=== PATIENT | male | born 1930 | race Caucasian/White ===

== ENCOUNTER 2017-01-19 07:45 | Inpatient (IN) | payer MEDICARE, BC ==
[2017-01-19] MEDS ORDERED: Sodium Chloride 0.9% 1,000 ML IV SCH ×2 (08:30→11:30)
--- NOTE | 2017-01-19 10:49 | EDM.PDOC ---
[id number] 4d CONFUSSED Time Seen by Provider: 01/19/17 07:55 Source of Information: Reports: Patient, EMS notes reviewed, Family History Limitations: Reports: No limitations - History of Present Illness INITIAL COMMENTS - FREE TEXT/NARRATIVE: Pt became much more confused during the nite. He got on the toilet and was not able to sit up. He gently slide off the toilet. Onset: today Duration: Hour(s): Associated Symptoms: Reports: confusion, cough, weakness - Related Data Allergies Allergy/AdvReac Type Severity Reaction Status Date / Time venom-honey bee Allergy Severe Airway Verified 01/19/17 08:05 [bee venom (honey bee)] Tightness Home Meds: Home Meds Alfuzosin HCl [Alfuzosin] 10 mg PO DAILY 10/22/14 [History] Aspirin [Adult Low Dose Aspirin EC] 81 mg PO DAILY 10/22/14 [History] Lisinopril 40 mg PO DAILY 10/22/14 [History] Omeprazole [priLOSEC OTC] 20 mg PO DAILY 10/22/14 [History] Simvastatin 20 mg PO DAILY 10/22/14 [History] Warfarin Sodium 2.5 mg PO ASDIRECTED 10/22/14 [History] metFORMIN [Glucophage] 1,000 mg PO BIDM 10/22/14 [History] Carvedilol [Coreg] 12.5 mg PO BIDM #60 tablet 10/25/14 [Rx] Furosemide 40 mg PO DAILY #30 tablet 04/15/16 [Rx] Past Medical History HEENT History: Reports: Cataract, Impaired vision Cardiovascular History: Reports: Afib, Bypass, CAD, High cholesterol, Hypertension, Pacemaker, Stents Respiratory History: Reports: Other (see below) Other Respiratory History: pneumonia Neurological History: Reports: CVA Endocrine/Metabolic History: Reports: Diabetes, type II Hematologic History: Reports: Anticoagulation therapy Oncologic (Cancer) History: Reports: Other (see below) Other Oncologic History: recent ear biopsy for possible skin cancer. Dermatologic History: Reports: Other (see below) Other Dermatologic History: biopsy on ear - Infectious Disease History Infectious Disease History: Reports: Chicken pox - Past Surgical History HEENT Surgical History: Reports: Cataract surgery Cardiovascular Surgical History: Reports: Coronary artery bypass, Coronary artery stent GI Surgical History: Reports: Hernia repair/other Musculoskeletal Surgical History: Reports: Knee replacement Social & Family History - Family History Cardiac: Reports: SD Endocrine/Metabolic: Reports: Diabetes, type II - Tobacco Use Smoking Status *Q: Former Smoker Years of Tobacco use: 30 Used Tobacco, but Quit: Yes Month Tobacco Last Used: 30 yrs Second Hand Smoke Exposure: No - Alcohol Use Days Per Week of Alcohol Use: 7 Number of Drinks Per Day: 1 Total Drinks Per Week: 7 - Recreational Drug Use Recreational Drug Use: No Drug Use in Last 12 Months: No ED ROS GENERAL - Review of Systems Review Of Systems: See Below Constitutional: Reports: fever, other (pt is running a low grade temp) HEENT: Reports: No symptoms Respiratory: Reports: Cough, Sputum, Other ( raising yellow sputum. ) Cardiovascular: Reports: No symptoms Endocrine: Reports: no symptoms GI/Abdominal: Reports: No symptoms : Reports: no symptoms Musculoskeletal: Reports: no symptoms Skin: Reports: no symptoms ED EXAM, GENERAL - Physical Exam Exam: See Below Free Text/Narrative:: pt does have a expressive problem from a stroke from 1 year ago. He was not able to tell us his date or where he was. Exam Limited By: Altered mental status General Appearance: alert, other (confusipon increase. pupils equal and reactive ) Ears: normal TMs Ear Exam: bilateral ear: auricle normal, canal normal, TM normal Nose: normal inspection Throat/Mouth: Normal inspection Head: atraumatic Neck: normal inspection, other Respiratory/Chest: no respiratory distress Cardiovascular: regular rate, rhythm, tachycardia GI/Abdominal: soft, non tender (Male) Exam: Deferred Rectal (Males) Exam: Deferred Back Exam: normal inspection Extremities: other ( Pt was not noted to have weakness on one side or the other. ) Neurological: alert, disoriented Course - Vital Signs Last Recorded V/S: Last Vital Signs Temp 37.6 C 01/20/17 07:23 Pulse 84 01/20/17 07:33 Resp 18 01/20/17 07:23 BP 147/103 H 01/20/17 07:24 Pulse Ox 95 01/20/17 07:23 - Orders/Labs/Meds Orders: Active Orders 24 hr Category Date Time Status Chest 1V Frontal [CR] Stat Exams 01/19/17 07:59 Taken Head wo Cont [CT] Stat Exams 01/19/17 07:59 Taken CULTURE BLOOD [BC] Urgent Lab 01/19/17 08:00 Received CULTURE BLOOD [BC] Urgent Lab 01/19/17 08:20 Received CULTURE RESPIRATORY + SMEAR [RM] Stat Lab 01/19/17 11:20 Uncollected Blood Culture x2 Reflex Set [OM.PC] Urgent Oth 01/19/17 09:02 Ordered Medication Orders Acetaminophen (Tylenol) 650 mg PO Q4H PRN PRN Reason: Pain (Mild 1-3)/fever Albuterol (Proventil Neb Soln) 2.5 mg NEB Q4H PRN PRN Reason: Shortness Of Breath/wheezing Albuterol/Ipratropium (Duoneb 3.0-0.5 Mg/3 Ml) 3 ml NEB QIDRT [facility] Last Admin: 01/20/17 07:33 Dose: 3 ml Admin: 01/19/17 20:45 Dose: 3 ml Admin: 01/19/17 14:49 Dose: 3 ml Aspirin (Halfprin) 81 mg PO DAILY [facility] Last Admin: 01/19/17 17:59 Dose: 81 mg Carvedilol (Coreg) 12.5 mg PO BIDM [facility] Last Admin: 01/20/17 07:24 Dose: 12.5 mg Admin: 01/19/17 18:00 Dose: 12.5 mg Dextrose (Glutose 15) 15 gm PO ONETIME PRN PRN Reason: Hypoglycemia Dextrose/Water (Dextrose 50% In Water) 50 ml IV ONETIME PRN PRN Reason: Hypoglycemia Docusate Sodium (Colace) 100 mg PO BID PRN PRN Reason: Constipation Furosemide (Lasix) 40 mg PO DAILY [facility] Azithromycin 500 mg/ Sodium (Chloride) 250 mls @ 250 mls/hr IV Q24H [facility] Last Admin: 01/19/17 15:12 Dose: 250 mls/hr Sodium Chloride (Normal Saline) 1,000 mls @ 75 mls/hr IV ASDIRECTED [facility] Last Admin: 01/20/17 05:56 Dose: 75 mls/hr Infusion: 01/20/17 05:11 Dose: 75 mls/hr Admin: 01/19/17 15:51 Dose: 75 mls/hr Ceftriaxone Sodium 1 gm/ (Sodium Chloride) 50 mls @ 100 mls/hr IV Q24H [facility] Last Admin: 01/19/17 16:58 Dose: 100 mls/hr Insulin Aspart (Novolog) 0 unit SUBCUT ASDIRECTED [facility] PRN Reason: Protocol Last Admin: 01/19/17 17:57 Dose: 4 units Lisinopril (Prinivil) 40 mg PO DAILY [facility] Last Admin: 01/19/17 18:01 Dose: 40 mg Magnesium Hydroxide (Milk Of Magnesia) 30 ml PO Q12H PRN PRN Reason: Constipation Alfuzosin 10 Mg ( (Ptom)) 0 mg PO DAILY [facility] Last Admin: 01/19/17 18:00 Dose: 10 mg Omeprazole 20 Mg ( (Ptom)) 0 mg PO DAILY@0730 [facility] Last Admin: 01/20/17 07:22 Dose: 20 mg Admin: 01/19/17 18:00 Dose: 20 mg Ondansetron HCl (Zofran) 4 mg IV Q4H PRN PRN Reason: Nausea/Vomiting Oxycodone HCl (Oxycodone) 5 mg PO Q4H PRN PRN Reason: Pain (moderate 4-6) Polyethylene Glycol (Miralax) 17 gm PO DAILY PRN PRN Reason: Constipation Sodium Chloride (Saline Flush) 10 ml FLUSH ASDIRECTED PRN PRN Reason: Keep Vein Open Labs: Laboratory Tests 01/19/17 01/19/17 01/19/17 Range/Units 07:58 08:00 08:00 WBC 11.6 H (4.5-11.0) K/uL RBC 3.56 L (4.30-5.90) M/uL Hgb 11.0 L D (12.0-15.0) g/dL Hct 33.5 L (40.0-54.0) % MCV 94 (80-98) fL MCH 31 (27-31) pg MCHC 33 (32-36) % Plt Count 172 (150-400) K/uL Neut % (Auto) 86 H (36-66) % Lymph % (Auto) 5 L (24-44) % [place] % (Auto) 8 H (2-6) % Eos % (Auto) 1 L (2-4) % Baso % (Auto) 0 (0-1) % PT 31.9 H (9.5-12.0) sec INR 2.91 H D (0.80-1.20) Sodium 138 L (140-148) mmol/L Potassium 4.3 (3.6-5.2) mmol/L Chloride 102 (100-108) mmol/L Carbon Dioxide 26 (21-32) mmol/L Anion Gap 14.3 H (5.0-14.0) mmol/L BUN 25 H (7-18) mg/dL Creatinine 1.3 (0.8-1.3) mg/dL Est Cr Clr Drug Dosing TNP Estimated GFR (MDRD) 52 L (>60) Glucose 139 H (74-106) mg/dL Lactic Acid (0.4-2.0) mmol/L Calcium 8.4 L (8.5-10.1) mg/dL Total Bilirubin 0.9 (0.2-1.0) mg/dL AST 15 (15-37) U/L ALT 15 (12-78) U/L Alkaline Phosphatase 93 (46-116) U/L Total Protein 7.5 (6.4-8.2) g/dL Albumin 3.5 (3.4-5.0) g/dL Globulin 4.0 H (2.3-3.5) g/dL Albumin/Globulin Ratio 0.9 L (1.2-2.2) Urine Color Urine Appearance Urine pH (4.5-8.0) Ur Specific [place] (1.008-1.030) Urine Protein (NEGATIVE) mg/dL Urine Glucose (UA) (NEGATIVE) mg/dL Urine Ketones (NEGATIVE) mg/dL Urine Occult Blood (NEGATIVE) Urine Nitrite (NEGAITVE) Urine Bilirubin (NEGATIVE) Urine Urobilinogen (NORMAL) mg/dL Ur Leukocyte Esterase (NEGATIVE) Urine RBC (0-5) Urine WBC (0-5) Ur Epithelial Cells Amorphous Sediment Urine Bacteria Urine Mucus 01/19/17 01/19/17 Range/Units 09:03 10:23 WBC (4.5-11.0) K/uL RBC (4.30-5.90) M/uL Hgb (12.0-15.0) g/dL Hct (40.0-54.0) % MCV (80-98) fL MCH (27-31) pg MCHC (32-36) % Plt Count (150-400) K/uL Neut % (Auto) (36-66) % Lymph % (Auto) (24-44) % [place] % (Auto) (2-6) % Eos % (Auto) (2-4) % Baso % (Auto) (0-1) % PT (9.5-12.0) sec INR (0.80-1.20) Sodium (140-148) mmol/L Potassium (3.6-5.2) mmol/L Chloride (100-108) mmol/L Carbon Dioxide (21-32) mmol/L Anion Gap (5.0-14.0) mmol/L BUN (7-18) mg/dL Creatinine (0.8-1.3) mg/dL Est Cr Clr Drug Dosing Estimated GFR (MDRD) (>60) Glucose (74-106) mg/dL Lactic Acid 1.7 (0.4-2.0) mmol/L Calcium (8.5-10.1) mg/dL Total Bilirubin (0.2-1.0) mg/dL AST (15-37) U/L ALT (12-78) U/L Alkaline Phosphatase (46-116) U/L Total Protein (6.4-8.2) g/dL Albumin (3.4-5.0) g/dL Globulin (2.3-3.5) g/dL Albumin/Globulin Ratio (1.2-2.2) Urine Color Yellow Urine Appearance Clear Urine pH 7.0 (4.5-8.0) Ur Specific [place] 1.010 (1.008-1.030) Urine Protein Negative (NEGATIVE) mg/dL Urine Glucose (UA) Normal (NEGATIVE) mg/dL Urine Ketones Negative (NEGATIVE) mg/dL Urine Occult Blood Negative (NEGATIVE) Urine Nitrite Negative (NEGAITVE) Urine Bilirubin Negative (NEGATIVE) Urine Urobilinogen 1 (NORMAL) mg/dL Ur Leukocyte Esterase Negative (NEGATIVE) Urine RBC 0-5 (0-5) Urine WBC 0-5 (0-5) Ur Epithelial Cells Not seen Amorphous Sediment Not seen Urine Bacteria Not seen Urine Mucus Not seen Meds: Medications Generic Name Dose Route Start Last Admin Trade Name Freq PRN Reason Stop Dose Admin Acetaminophen 650 mg 01/19/17 14:08 Tylenol PO Q4H PRN Pain (Mild 1-3)/fever Albuterol 2.5 mg 01/19/17 14:08 Proventil Neb Soln NEB Q4H PRN Shortness Of Breath/wheezing Albuterol/Ipratropium 3 ml 01/19/17 15:00 01/20/17 07:33 Duoneb 3.0-0.5 Mg/3 Ml NEB 3 ml QIDRT [facility] Administration Aspirin 81 mg 01/19/17 14:08 01/19/17 17:59 Halfprin PO 81 mg DAILY [facility] Administration Carvedilol 12.5 mg 01/19/17 17:00 01/20/17 07:24 Coreg PO 12.5 mg BIDM [facility] Administration Dextrose 15 gm 01/19/17 14:08 Glutose 15 PO ONETIME PRN Hypoglycemia Dextrose/Water 50 ml 01/19/17 14:08 Dextrose 50% In Water IV ONETIME PRN Hypoglycemia Docusate Sodium 100 mg 01/19/17 14:08 Colace PO BID PRN Constipation Furosemide 40 mg 01/20/17 09:00 Lasix PO DAILY [facility] Azithromycin 500 mg/ Sodium 250 mls @ 250 mls/hr 01/19/17 15:00 01/19/17 15: 12 Chloride IV 250 mls/hr Q24H [facility] Administration Sodium Chloride 1,000 mls @ 75 mls/hr 01/19/17 14:08 01/20/17 05:56 Normal Saline IV 75 mls/hr ASDIRECTED [facility] Administration Ceftriaxone Sodium 1 gm/ 50 mls @ 100 mls/hr 01/19/17 16:00 01/19/17 16:58 Sodium Chloride IV 100 mls/hr Q24H [facility] Administration Insulin Aspart 0 unit 01/19/17 14:08 01/19/17 17:57 Novolog SUBCUT 4 units ASDIRECTED [facility] Administration Protocol Lisinopril 40 mg 01/19/17 16:00 01/19/17 18:01 Prinivil PO 40 mg DAILY [facility] Administration Magnesium Hydroxide 30 ml 01/19/17 14:08 Milk Of Magnesia PO Q12H PRN Constipation Alfuzosin 10 Mg ( 0 mg 01/19/17 14:08 01/19/17 18:00 Ptom) PO 10 mg DAILY [facility] Administration Omeprazole 20 Mg ( 0 mg 01/19/17 16:00 01/20/17 07:22 Ptom) PO 20 mg DAILY@0730 [facility] Administration Ondansetron HCl 4 mg 01/19/17 14:08 Zofran IV Q4H PRN Nausea/Vomiting Oxycodone HCl 5 mg 01/19/17 14:08 Oxycodone PO Q4H PRN Pain (moderate 4-6) Polyethylene Glycol 17 gm 01/19/17 14:08 Miralax PO DAILY PRN Constipation Sodium Chloride 10 ml 01/19/17 14:08 Saline Flush FLUSH ASDIRECTED PRN Keep Vein Open Discontinued Medications Generic Name Dose Route Start Last Admin Trade Name Freq PRN Reason Stop Dose Admin Sodium Chloride 1,000 mls @ 999 mls/hr 01/19/17 08:30 01/19/17 09:25 Normal Saline IV 999 mls/hr ASDIRECTED [facility] Administration Sodium Chloride 1,000 mls @ 250 mls/hr 01/19/17 11:30 01/19/17 11:28 Normal Saline IV 250 mls/hr ASDIRECTED [facility] Administration Lidocaine HCl 10 ml 01/19/17 18:04 01/19/17 18:23 Xylocaine 2% Jelly MUCMEM 01/19/17 18:05 10 ml ONETIME ONE Administration Lidocaine HCl Confirm 01/19/17 18:10 01/19/17 18:22 Xylocaine 2% Jelly Administered 01/19/17 18:11 Not Given Dose 10 ml .ROUTE .STK-MED ONE Warfarin Sodium 2.5 mg 01/19/17 16:00 01/19/17 17:59 Coumadin PO 01/19/17 16:01 2.5 mg ONETIME ONE Administration - Re-Assessments/Exams Free Text/Narrative Re-Assessment/Exam: 01/20/17 08:03 Pt had a cat scan of the head which did not show acute changes. He was found to have a fairly clear urine. His temp was low grade. His chest xray on th rt side possibly could have a slight infiltrate. He has been coughing up yellow sputum. Departure - Departure Time of Disposition: 11:18 Disposition: Admitted As Inpatient 65 Condition: fair Clinical Impression: Confusion, Temperature elevated - My Orders Last 24 Hours: My Active Orders 01/19/17 07:59 Chest 1V Frontal [CR] Stat Head wo Cont [CT] Stat 01/19/17 08:00 CULTURE BLOOD [BC] Urgent 01/19/17 08:20 CULTURE BLOOD [BC] Urgent 01/19/17 09:02 Blood Culture x2 Reflex Set [OM.PC] Urgent 01/19/17 11:20 CULTURE RESPIRATORY + SMEAR [RM] Stat - Assessment/Plan Last 24 Hours: My Active Orders 01/19/17 07:59 Chest 1V Frontal [CR] Stat Head wo Cont [CT] Stat 01/19/17 08:00 CULTURE BLOOD [BC] Urgent 01/19/17 08:20 CULTURE BLOOD [BC] Urgent 01/19/17 09:02 Blood Culture x2 Reflex Set [OM.PC] Urgent 01/19/17 11:20 CULTURE RESPIRATORY + SMEAR [RM] Stat
--- NOTE | 2017-01-19 13:10 | PCM.HP ---
H&P History of Present Illness - General Date of Service: 01/19/17 Admit Problem/Dx: Admission Diagnosis/Problem Admission Diagnosis/Problem Bronchitis Source of Information: Patient, Family, Provider History Limitations: Reports: Other (Expressive aphasia) - History of Present Illness Initial Comments - Free Text/Narative: This patient is an 86-year-old gentleman who is admitted to observation status through the emergency department current episode of confusion and underlying respiratory tract infection. He's had difficulty with an intermittent cough over the past few months, cough has been worse over the past week and he is begun to cough up some sputum with yellow coloration. This morning was noted to be very confused by his and brought in for further evaluation. Chest x- ray shows no obvious infiltrates and he was felt to be mildly dehydrated. White blood cell count is modestly elevated and he has had some mild temperature elevation while in the emergency department. Infusion seems to be improved and his oxygen saturations and vital signs have been stable. - Related Data Allergies/Adverse Reactions: Allergies Allergy/AdvReac Type Severity Reaction Status Date / Time venom-honey bee Allergy Severe Airway Verified 01/19/17 08:05 [bee venom (honey bee)] Tightness Home Medications: Home Meds Alfuzosin HCl [Alfuzosin] 10 mg PO DAILY 10/22/14 [History] Aspirin [Adult Low Dose Aspirin EC] 81 mg PO DAILY 10/22/14 [History] Lisinopril 40 mg PO DAILY 10/22/14 [History] Omeprazole [priLOSEC OTC] 20 mg PO DAILY 10/22/14 [History] Simvastatin 20 mg PO DAILY 10/22/14 [History] Warfarin Sodium 2.5 mg PO ASDIRECTED 10/22/14 [History] metFORMIN [Glucophage] 1,000 mg PO BIDM 10/22/14 [History] Carvedilol [Coreg] 12.5 mg PO BIDM #60 tablet 10/25/14 [Rx] Furosemide 40 mg PO DAILY #30 tablet 04/15/16 [Rx] Past Medical History HEENT History: Reports: Cataract, Impaired vision Cardiovascular History: Reports: Afib, Bypass, CAD, High cholesterol, Hypertension, Pacemaker, Stents Respiratory History: Reports: Other (see below) Other Respiratory History: pneumonia Neurological History: Reports: CVA Endocrine/Metabolic History: Reports: Diabetes, type II Hematologic History: Reports: Anticoagulation therapy Oncologic (Cancer) History: Reports: Other (see below) Other Oncologic History: recent ear biopsy for possible skin cancer. Dermatologic History: Reports: Other (see below) Other Dermatologic History: biopsy on ear - Infectious Disease History Infectious Disease History: Reports: Chicken pox - Past Surgical History HEENT Surgical History: Reports: Cataract surgery Cardiovascular Surgical History: Reports: Coronary artery bypass, Coronary artery stent GI Surgical History: Reports: Hernia repair/other Musculoskeletal Surgical History: Reports: Knee replacement Social & Family History - Family History Cardiac: Reports: CA Endocrine/Metabolic: Reports: Diabetes, type II - Tobacco Use Smoking Status *Q: Former Smoker Years of Tobacco use: 30 Used Tobacco, but Quit: Yes Month Tobacco Last Used: 30 yrs Second Hand Smoke Exposure: No - Alcohol Use Days Per Week of Alcohol Use: 7 Number of Drinks Per Day: 1 Total Drinks Per Week: 7 - Recreational Drug Use Recreational Drug Use: No Drug Use in Last 12 Months: No H&P Review of Systems - Review of Systems: Review Of Systems: Unable To Obtain General: Reports: ROS unobtainable (Secondary to confusion and expressive aphasia) Exam - Exam Exam: See Below - Vital Signs Vital Signs: Last Vital Signs Temp 99.7 F 01/19/17 10:48 Pulse 81 01/19/17 11:55 Resp 14 01/19/17 11:55 BP 129/67 01/19/17 11:55 Pulse Ox 97 01/19/17 11:55 Weight: 170 lb - Exam Quality Assessment: supplemental oxygen, DVT prophylaxis General: alert, cooperative, mild distress HEENT: Conjunctiva clear, Hearing intact, Mucosa moist & pink, Nares patent, Normal nasal septum, Posterior pharynx clear, Pupils equal, Pupils reactive Neck: supple, trachea midline, +2 carotid pulse wo bruit Lungs: Normal respiratory effort, Decreased breath sounds, Rhonchi, Wheezing. No: Crackles, Rales, Rub, Stridor Cardiovascular: regular rate, regular rhythm, normal S1, normal S2. No: irregular rhythm, bradycardia, tachycardia, systolic murmur, diastolic murmur Abdomen: normal bowel sounds, soft Back Exam: normal inspection, full range of motion, NT Extremities: 3, normal inspection, 10 Skin: warm, dry, intact Neurological: cranial nerves intact, strength equal bilateral, normal tone, sensation intact, focal deficit. No: normal speech Neuro Extensive - Mental Status: alert, normal mood/affect, memory loss-remote events, memory loss-recent events - Patient Data Lab Results last 24 hrs: Laboratory Results - last 24 hr 01/19/17 01/19/17 01/19/17 Range/Units 07:58 08:00 08:00 WBC 11.6 H (4.5-11.0) K/uL RBC 3.56 L (4.30-5.90) M/uL Hgb 11.0 L D (12.0-15.0) g/dL Hct 33.5 L (40.0-54.0) % MCV 94 (80-98) fL MCH 31 (27-31) pg MCHC 33 (32-36) % Plt Count 172 (150-400) K/uL Neut % (Auto) 86 H (36-66) % Lymph % (Auto) 5 L (24-44) % [place] % (Auto) 8 H (2-6) % Eos % (Auto) 1 L (2-4) % Baso % (Auto) 0 (0-1) % PT 31.9 H (9.5-12.0) sec INR 2.91 H D (0.80-1.20) Sodium 138 L (140-148) mmol/L Potassium 4.3 (3.6-5.2) mmol/L Chloride 102 (100-108) mmol/L Carbon Dioxide 26 (21-32) mmol/L Anion Gap 14.3 H (5.0-14.0) mmol/L BUN 25 H (7-18) mg/dL Creatinine 1.3 (0.8-1.3) mg/dL Est Cr Clr Drug Dosing TNP Estimated GFR (MDRD) 52 L (>60) Glucose 139 H (74-106) mg/dL Lactic Acid (0.4-2.0) mmol/L Calcium 8.4 L (8.5-10.1) mg/dL Total Bilirubin 0.9 (0.2-1.0) mg/dL AST 15 (15-37) U/L ALT 15 (12-78) U/L Alkaline Phosphatase 93 (46-116) U/L Total Protein 7.5 (6.4-8.2) g/dL Albumin 3.5 (3.4-5.0) g/dL Globulin 4.0 H (2.3-3.5) g/dL Albumin/Globulin Ratio 0.9 L (1.2-2.2) Urine Color Urine Appearance Urine pH (4.5-8.0) Ur Specific [place] (1.008-1.030) Urine Protein (NEGATIVE) mg/dL Urine Glucose (UA) (NEGATIVE) mg/dL Urine Ketones (NEGATIVE) mg/dL Urine Occult Blood (NEGATIVE) Urine Nitrite (NEGAITVE) Urine Bilirubin (NEGATIVE) Urine Urobilinogen (NORMAL) mg/dL Ur Leukocyte Esterase (NEGATIVE) Urine RBC (0-5) Urine WBC (0-5) Ur Epithelial Cells Amorphous Sediment Urine Bacteria Urine Mucus 01/19/17 01/19/17 Range/Units 09:03 10:23 WBC (4.5-11.0) K/uL RBC (4.30-5.90) M/uL Hgb (12.0-15.0) g/dL Hct (40.0-54.0) % MCV (80-98) fL MCH (27-31) pg MCHC (32-36) % Plt Count (150-400) K/uL Neut % (Auto) (36-66) % Lymph % (Auto) (24-44) % [place] % (Auto) (2-6) % Eos % (Auto) (2-4) % Baso % (Auto) (0-1) % PT (9.5-12.0) sec INR (0.80-1.20) Sodium (140-148) mmol/L Potassium (3.6-5.2) mmol/L Chloride (100-108) mmol/L Carbon Dioxide (21-32) mmol/L Anion Gap (5.0-14.0) mmol/L BUN (7-18) mg/dL Creatinine (0.8-1.3) mg/dL Est Cr Clr Drug Dosing Estimated GFR (MDRD) (>60) Glucose (74-106) mg/dL Lactic Acid 1.7 (0.4-2.0) mmol/L Calcium (8.5-10.1) mg/dL Total Bilirubin (0.2-1.0) mg/dL AST (15-37) U/L ALT (12-78) U/L Alkaline Phosphatase (46-116) U/L Total Protein (6.4-8.2) g/dL Albumin (3.4-5.0) g/dL Globulin (2.3-3.5) g/dL Albumin/Globulin Ratio (1.2-2.2) Urine Color Yellow Urine Appearance Clear Urine pH 7.0 (4.5-8.0) Ur Specific [place] 1.010 (1.008-1.030) Urine Protein Negative (NEGATIVE) mg/dL Urine Glucose (UA) Normal (NEGATIVE) mg/dL Urine Ketones Negative (NEGATIVE) mg/dL Urine Occult Blood Negative (NEGATIVE) Urine Nitrite Negative (NEGAITVE) Urine Bilirubin Negative (NEGATIVE) Urine Urobilinogen 1 (NORMAL) mg/dL Ur Leukocyte Esterase Negative (NEGATIVE) Urine RBC 0-5 (0-5) Urine WBC 0-5 (0-5) Ur Epithelial Cells Not seen Amorphous Sediment Not seen Urine Bacteria Not seen Urine Mucus Not seen Result Diagrams: 01/19/17 07:58 01/19/17 08:00 *Q Meaningful Use (ADM) - VTE *Q VTE Criteria *Q: VTE Pharmacological Contraindications *Q: High INR Value - VTE Risk Assess *Q Each Risk Factor Represents 1 Point: Abnormal Pulmonary Function (COPD) Total Score 1 Point Risk Factors: 1 Each Risk Factor Represents 2 Points: None Total Score 2 Point Risk Factors: 0 Each Risk Factor Represents 3 Points: Age 75 Years or Greater Total Score 3 Point Risk Factors: 3 Each Risk Factor Represents 5 Points: None Total Score 5 Point Risk Factors: 0 Venous Thromboembolism Risk Factor Score *Q: 4 - Stroke *Q Stroke Criteria *Q: - AMI *Q AMI Criteria *Q: Problem List Initiated/Reviewed/Updated: Yes Orders Last 24hrs: Active Orders 24 hr Category Date Time Status Patient Status Manage Transfer [TRANSFER] Routine ADT 01/19/17 12:48 Ordered Chest 1V Frontal [CR] Stat Exams 01/19/17 07:59 Taken Head wo Cont [CT] Stat Exams 01/19/17 07:59 Taken CULTURE BLOOD [BC] Urgent Lab 01/19/17 08:00 Received CULTURE BLOOD [BC] Urgent Lab 01/19/17 08:20 Received CULTURE RESPIRATORY + SMEAR [RM] Stat Lab 01/19/17 11:20 Uncollected Sodium Chloride 0.9% [Normal Saline] 1,000 ml Med 01/19/17 08:30 Active IV ASDIRECTED Sodium Chloride 0.9% [Normal Saline] 1,000 ml Med 01/19/17 11:30 Active IV ASDIRECTED Blood Culture x2 Reflex Set [OM.PC] Urgent Oth 01/19/17 09:02 Ordered Resuscitation Status Routine Resus Stat 01/19/17 12:50 Ordered Medication Orders Sodium Chloride (Normal Saline) 1,000 mls @ 999 mls/hr IV ASDIRECTED [facility] Last Admin: 01/19/17 09:25 Dose: 999 mls/hr Sodium Chloride (Normal Saline) 1,000 mls @ 250 mls/hr IV ASDIRECTED [facility] Last Admin: 01/19/17 11:28 Dose: 250 mls/hr Assessment/Plan Comment:: ASSESSMENT AND PLAN CONFUSION-episode occurred this morning where he was very confused, since then has improved somewhat. He had a stroke approximately 8 months ago and has had some intermittent confusion since then but not as bad as it was this morning. He seems to have cleared somewhat since he has been in the emergency department. CT scan of the head shows no acute changes. He does appear to have underlying pulmonary infection but no other etiology for increased confusion. -Management of respiratory infection as below -Observation admission for monitoring BRONCHITIS WITH COPD EXACERBATION-no obvious infiltrate identified on chest x- ray. He does have history of increased cough with sputum production which has appeared somewhat purulent. -Supplemental oxygen as needed -Nebulized albuterol and duo nebs -Repeat chest x-ray in a.m. -IV antibiotic therapy using Rocephin and azithromycin -IV fluids for hydration TYPE 2 DIABETES MELLITUS -Hold metformin -Moderate dose sliding scale NovoLog -4 times a day glucometers CHRONIC KIDNEY DISEASE STAGE III -Monitor urine output and renal function closely during hospital stay. 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 CT scan of the head shows no acute changes. ATRIAL FIBRILLATION-rate controlled, on long-term oral anticoagulation with warfarin. INR obtained today in the emergency Department is within therapeutic range. -Recheck INR in a.m. -Warfarin 2.5 mg by mouth today MAINTENANCE ISSUES -DVT prophylaxis; current therapy with warfarin should provide adequate DVT prophylaxis continue outpatient PPI therapy -GI prophylaxis;continue outpatient PPI therapy -Aldridge catheter; none indicated -Nutrition; 2 g sodium consistent carb diet -Nicotinic dependence; not required CODE STATUS-FULL CODE ADMISSION STATUS-this patient will be admitted to observation status, expect no more than a one night hospital stay for evaluation and management of problems as outlined above. DISPOSITION-anticipate discharge to home after the hospital stay. PRIMARY CARE PROVIDER-Franci Rolon
[2017-01-19] MEDS ORDERED: oxyCODONE 5 MG Tab PO PRN (14:08)
[2017-01-19] MEDS ORDERED: Polyethylene Glycol 3350 Powder 17 GM Packet PO PRN (14:08)
[2017-01-19] MEDS ORDERED: Sodium Chloride 0.9% 10 ML Syringe FLUSH PRN (14:08)
[2017-01-19] MEDS ORDERED: Albuterol 0.083% 2.5 MG/3 ML Neb Soln NEB PRN (14:08)
[2017-01-19] MEDS ORDERED: Magnesium Hydroxide 400 MG/5 ML Susp 30 ML Cup PO PRN (14:08)
[2017-01-19] MEDS ORDERED: 50% Dextrose in Water 50 ML Syringe IV PRN (14:08)
[2017-01-19] MEDS ORDERED: Docusate Sodium 100 MG Cap PO PRN (14:08)
[2017-01-19] MEDS ORDERED: Ondansetron 4 MG/2 ML SDV IV PRN (14:08)
[2017-01-19] MEDS ORDERED: Glucose Gel 15 GM in 37.5 GM Tube PO PRN (14:08)
[2017-01-19] MEDS: Albuterol/Ipratropium 3.0-0.5 MG/3 ML Neb Soln NEB SCH ×2 (14:49→20:45)
[2017-01-19] MEDS: Azithromycin 500 MG in Sodium Chloride 0.9% 250 ML IV SCH (15:12)
[2017-01-19] MEDS: Sodium Chloride 0.9% 1,000 ML IV SCH (15:51)
[2017-01-19] MEDS ORDERED: Warfarin 2.5 MG Tab PO ONE (16:00)
[2017-01-19] MEDS: cefTRIAXone 1 GM in Sodium Chloride 0.9% 50 ML IV SCH (16:58)
[2017-01-19] MEDS: Insulin Aspart 100 Units/ML 3 ML Pen SUBCUT SCH (17:57)
[2017-01-19] MEDS: Aspirin 81 MG Tab.EC (PTOM) PO SCH (17:59)
[2017-01-19] MEDS: OMEPRAZOLE 20 MG PO SCH (18:00)
[2017-01-19] MEDS: CARVEDILOL 25 MG PO SCH (18:00)
[2017-01-19] MEDS: ALFUZOSIN 10 MG PO SCH (18:00)
[2017-01-19] MEDS: LISINOPRIL 10 MG PO SCH (18:01)
[2017-01-19] MEDS ORDERED: Lidocaine 2% Jelly 10 ML Urojet MUCMEM ONE (18:04)
[2017-01-19] MEDS ORDERED: Lidocaine 2% Jelly 10 ML Urojet ONE (18:10)
[2017-01-20] MEDS: Sodium Chloride 0.9% 1,000 ML IV SCH (05:56)
[2017-01-20] MEDS: OMEPRAZOLE 20 MG PO SCH (07:22)
[2017-01-20] MEDS: CARVEDILOL 25 MG PO SCH ×2 (07:24→16:20)
[2017-01-20] MEDS: Albuterol/Ipratropium 3.0-0.5 MG/3 ML Neb Soln NEB SCH ×4 (07:33→20:03)
[2017-01-20] MEDS: ALFUZOSIN 10 MG PO SCH (09:00)
[2017-01-20] MEDS: Aspirin 81 MG Tab.EC (PTOM) PO SCH (09:01)
[2017-01-20] MEDS: Furosemide 20 MG (PTOM) PO SCH (09:03)
[2017-01-20] MEDS: LISINOPRIL 10 MG PO SCH (09:04)
[2017-01-20] MEDS: Insulin Aspart 100 Units/ML 3 ML Pen SUBCUT SCH ×3 (11:41→21:18)
--- NOTE | 2017-01-20 12:52 | PCM.PN ---
- General Info Date of Service: 01/20/17 Functional Status: Reports: tolerating diet. Denies: urinating - Review of Systems General: Reports: Fever, Weakness Pulmonary: Reports: shortness of breath, cough, wheezing. Denies: sputum, hemoptysis Cardiovascular: Reports: No Symptoms Gastrointestinal: Reports: No symptoms Genitourinary: Reports: retention Systems Review Comment:: This patient has remained hemodynamically stable since admission, he has had low -grade temperature elevations. Chest x-ray obtained this morning following hydration with IV fluids shows evidence of a infiltrate in the right lower lung. He is more alert and interactive today, continues to have significant difficulty with communication because of his expressive aphasia. Will begin difficulty with urinary retention last night the point where he became uncomfortable, requiring placement of a Aldridge catheter. He is on alpha sarah therapy at the time of admission. - Patient Data Vitals - most recent: Last Vital Signs Temp 99.6 F 01/20/17 07:23 Pulse 96 01/20/17 10:53 Resp 18 01/20/17 07:23 BP 147/103 H 01/20/17 09:04 Pulse Ox 95 01/20/17 07:23 Weight - most recent: 170 lb I&O - last 24 hours: Intake & Output 01/19/17 01/20/17 01/20/17 22:59 06:59 14:59 Intake Total 511 540 Output Total 675 Balance -164 540 Lab Results last 24 hrs: Laboratory Results - last 24 hr 01/20/17 01/20/17 01/20/17 Range/Units 04:30 04:30 04:30 WBC 7.4 (4.5-11.0) K/uL RBC 3.26 L (4.30-5.90) M/uL Hgb 9.8 L (12.0-15.0) g/dL Hct 30.9 L (40.0-54.0) % MCV 95 (80-98) fL MCH 30 (27-31) pg MCHC 32 (32-36) % Plt Count 156 (150-400) K/uL Neut % (Auto) 74 H (36-66) % Lymph % (Auto) 12 L (24-44) % [place] % (Auto) 13 H (2-6) % Eos % (Auto) 1 L (2-4) % Baso % (Auto) 0 (0-1) % PT 21.8 H (9.5-12.0) sec INR 2.01 H (0.80-1.20) Sodium 139 L (140-148) mmol/L Potassium 3.8 (3.6-5.2) mmol/L Chloride 105 (100-108) mmol/L Carbon Dioxide 25 (21-32) mmol/L Anion Gap 12.8 (5.0-14.0) mmol/L BUN 18 (7-18) mg/dL Creatinine 1.0 (0.8-1.3) mg/dL Est Cr Clr Drug Dosing TNP Estimated GFR (MDRD) > 60 (>60) Glucose 95 (74-106) mg/dL Calcium 8.2 L (8.5-10.1) mg/dL Med Orders - Current: Current Medications Acetaminophen (Tylenol) 650 mg PO Q4H PRN PRN Reason: Pain (Mild 1-3)/fever Albuterol (Proventil Neb Soln) 2.5 mg NEB Q4H PRN PRN Reason: Shortness Of Breath/wheezing Albuterol/Ipratropium (Duoneb 3.0-0.5 Mg/3 Ml) 3 ml NEB QIDRT [facility] Last Admin: 01/20/17 10:53 Dose: 3 ml Aspirin (Halfprin) 81 mg PO DAILY [facility] Last Admin: 01/20/17 09:01 Dose: 81 mg Carvedilol (Coreg) 12.5 mg PO BIDM [facility] Last Admin: 01/20/17 07:24 Dose: 12.5 mg Dextrose (Glutose 15) 15 gm PO ONETIME PRN PRN Reason: Hypoglycemia Dextrose/Water (Dextrose 50% In Water) 50 ml IV ONETIME PRN PRN Reason: Hypoglycemia Docusate Sodium (Colace) 100 mg PO BID PRN PRN Reason: Constipation Furosemide (Lasix) 40 mg PO DAILY [facility] Last Admin: 01/20/17 09:03 Dose: 40 mg Azithromycin 500 mg/ Sodium (Chloride) 250 mls @ 250 mls/hr IV Q24H [facility] Last Admin: 01/19/17 15:12 Dose: 250 mls/hr Ceftriaxone Sodium 1 gm/ (Sodium Chloride) 50 mls @ 100 mls/hr IV Q24H [facility] Last Admin: 01/19/17 16:58 Dose: 100 mls/hr Insulin Aspart (Novolog) 0 unit SUBCUT ASDIRECTED [facility] PRN Reason: Protocol Last Admin: 01/20/17 11:41 Dose: 2 units Lisinopril (Prinivil) 40 mg PO DAILY [facility] Last Admin: 01/20/17 09:04 Dose: 40 mg Magnesium Hydroxide (Milk Of Magnesia) 30 ml PO Q12H PRN PRN Reason: Constipation Alfuzosin 10 Mg ( (Ptom)) 0 mg PO DAILY [facility] Last Admin: 01/20/17 09:00 Dose: 10 mg Omeprazole 20 Mg ( (Ptom)) 0 mg PO DAILY@0730 [facility] Last Admin: 01/20/17 07:22 Dose: 20 mg Ondansetron HCl (Zofran) 4 mg IV Q4H PRN PRN Reason: Nausea/Vomiting Oxycodone HCl (Oxycodone) 5 mg PO Q4H PRN PRN Reason: Pain (moderate 4-6) Polyethylene Glycol (Miralax) 17 gm PO DAILY PRN PRN Reason: Constipation Sodium Chloride (Saline Flush) 10 ml FLUSH ASDIRECTED PRN PRN Reason: Keep Vein Open Warfarin Sodium (Coumadin) 5 mg PO ONETIME ONE Stop: 01/20/17 12:47 Discontinued Medications Sodium Chloride (Normal Saline) 1,000 mls @ 999 [facility] Last Admin: 01/19/17 09:25 Dose: 999 mls/hr Sodium Chloride (Normal Saline) 1,000 mls @ 250 [facility]ls[facility] Last Admin: 01/19/17 11:28 Dose: 250 mls/hr Sodium Chloride (Normal Saline) 1,000 mls @ 75 mls/hr IV [facility] Last Admin: 01/20/17 05:56 Dose: 75 mls/hr Lidocaine HCl (Xylocaine 2% Jelly) 10 ml MUCMEM ONETIME ONE Stop: 01/19/17 18:05 Last Admin: 01/19/17 18:23 Dose: 10 ml Lidocaine HCl (Xylocaine 2% Jelly) Confirm Administered Dose 10 ml .ROUTE .STK- MED ONE Stop: 01/19/17 18:11 Last Admin: 01/19/17 18:22 Dose: Not Given Warfarin Sodium (Coumadin) 2.5 mg PO ONETIME ONE Stop: 01/19/17 16:01 Last Admin: 01/19/17 17:59 Dose: 2.5 mg - Exam Quality Assessment: urine catheter, DVT prophylaxis General: alert, oriented, cooperative, no acute distress Lungs: Decreased breath sounds, Wheezing. No: Crackles, Rales, Rhonchi, Rub, Stridor Cardiovascular: Regular Rate, Irregular Rhythm, Murmurs. No: Bradycardia, Tachycardia Abdomen: bowel sounds present, soft, no tenderness, no distension Extremities: no edema Skin: warm, dry, intact - Problem List Review Problem List Initiated/Reviewed/Updated: Yes - My Orders Last 24 Hours: My Active Orders 01/19/17 12:50 Resuscitation Status Routine 01/19/17 14:08 Patient Status [ADT] Routine Blood Glucose Check, Bedside [RC] QIDACANDBED Communication Order [RC] ASDIRECTED Diabetes Education [RC] Click to Edit Intake and Output [RC] QSHIFT Notify Provider Vital Signs [RC] ASDIRECTED Notify Provider [RC] PRN Oxygen Therapy [RC] PRN Peripheral IV Care [RC] . DIRECTED RT Aerosol Therapy [RC] ASDIRECTED Up With Assistance [RC] ASDIRECTED VTE/DVT Education [RC] Per Unit Routine Vital Signs [RC] Q4H Acetaminophen [Tylenol] 650 mg PO Q4H PRN Albuterol [Proventil Neb Soln] 2.5 mg NEB Q4H PRN Dextrose 50% in Water 50 ml IV ONETIME PRN Dextrose [Glutose 15] 15 gm PO ONETIME PRN Docusate Sodium [Colace] 100 mg PO BID PRN Insulin Aspart [NovoLOG] See Protocol SUBCUT ASDIRECTED Magnesium Hydroxide [Milk of Magnesia] 30 ml PO Q12H PRN Ondansetron [Zofran] 4 mg IV Q4H PRN Polyethylene Glycol 3350 [MiraLAX] 17 gm PO DAILY PRN Sodium Chloride 0.9% [Saline Flush] 10 ml FLUSH ASDIRECTED PRN oxyCODONE 5 mg PO Q4H PRN Peripheral IV Insertion Adult [OM.PC] Routine VTE Pharmacological Contraindications [AST] Per Unit Routine 01/19/17 15:00 Albuterol/Ipratropium [DuoNeb 3.0-0.5 MG/3 ML] 3 ml NEB QIDRT Azithromycin [Zithromax] 500 mg Sodium Chloride 0.9% [Normal Saline] 250 ml IV Q24H 01/19/17 16:00 cefTRIAXone [Rocephin] 1 gm Sodium Chloride 0.9% [Normal Saline] 50 ml IV Q24H 01/19/17 18:03 Urinary Catheter Assessment [RC] ASDIRECTED 01/19/17 18:15 Aldridge Catheter Insertion [Insert Urinary Catheter] [OM.PC] Q24H 01/20/17 08:20 Chest 2V [CR] Urgent 01/20/17 12:45 Convert IV to Saline Lock [OM.PC] Routine 01/20/17 12:46 Warfarin [Coumadin] 5 mg PO ONETIME ONE 01/21/17 05:11 INR,PT,PROTHROMBIN TIME [COAG] AM - Plan Plan:: ASSESSMENT AND PLAN CONFUSION-significantly improved from admission, likely secondary to his previous CVA as well as current infection. RIGHT LUNG PNEUMONIA WITH COPD EXACERBATION-followup chest x-ray obtained this morning after hydration does show evidence of a right lung infiltrate. He is been stable from her respiratory status, continues to have bilateral wheezes, but oxygenation has remained good on room air in the showing no evidence of significant compromise. -Supplemental oxygen as needed -Nebulized albuterol and duo nebs -Repeat chest x-ray in a.m. -IV antibiotic therapy using Rocephin and azithromycin -Saline lock IV TYPE 2 DIABETES MELLITUS -Hold metformin -Moderate dose sliding scale NovoLog -4 times a day glucometers CHRONIC KIDNEY DISEASE STAGE III-renal function has improved with hydration -Monitor urine output and renal function closely during hospital stay. 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 CT scan of the head shows no acute changes. ATRIAL FIBRILLATION-rate controlled, on long-term oral anticoagulation with warfarin. INR obtained today is borderline low -Recheck INR in a.m. -Warfarin 5 mg by mouth today MAINTENANCE ISSUES -DVT prophylaxis; current therapy with warfarin should provide adequate DVT prophylaxis continue outpatient PPI therapy -GI prophylaxis;continue outpatient PPI therapy -Aldridge catheter; none indicated -Nutrition; 2 g sodium consistent carb diet -Nicotinic dependence; not required CODE STATUS-FULL CODE ADMISSION STATUS-this patient will be admitted to observation status, expect no more than a one night hospital stay for evaluation and management of problems as outlined above. DISPOSITION-anticipate discharge to home after the hospital stay. PRIMARY CARE PROVIDER-Franci Rolon
[2017-01-20] MEDS ORDERED: Warfarin 5 MG Tab PO ONE (14:00)
[2017-01-20] MEDS: Azithromycin 500 MG in Sodium Chloride 0.9% 250 ML IV SCH (14:34)
[2017-01-20] MEDS: cefTRIAXone 1 GM in Sodium Chloride 0.9% 50 ML IV SCH (16:14)
[2017-01-20] MEDS: Acetaminophen 325 MG Tab PO PRN (16:16)
[2017-01-21] MEDS: Acetaminophen 325 MG Tab PO PRN (02:26)
[2017-01-21] MEDS: Albuterol/Ipratropium 3.0-0.5 MG/3 ML Neb Soln NEB SCH ×4 (07:37→20:45)
[2017-01-21] MEDS: OMEPRAZOLE 20 MG PO SCH (07:51)
[2017-01-21] MEDS: CARVEDILOL 25 MG PO SCH (07:52)
--- NOTE | 2017-01-21 09:11 | CR ---
Chest 1V Frontal INDICATION: confusion sob FINDINGS: Comparison 04/14/2016. Sternotomy. 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 Stable cardiomegaly. Impro vement of pulmonary venous hypertension since prior exam. No focal consolidation or pleural effusion . Degenerative changes left shoulder.
--- NOTE | 2017-01-21 09:40 | PCM.PN ---
- General Info Date of Service: 01/21/17 Functional Status: Reports: pain controlled, tolerating diet - Review of Systems Pulmonary: Reports: cough, sputum Cardiovascular: Denies: Chest Pain Systems Review Comment:: No acute events overnight but patient appears confused and was trying to pour his ice water into his coffee cup. Elevated temperature to 38.2 last night. No complaints of chest pain or shortness of breath today. Appetite has been good. He has audible wheezing while in the room. He was able to produce a sputum sample but evaluation is pending at this time. - Patient Data Vitals - most recent: Last Vital Signs Temp 36.3 C 01/21/17 07:27 Pulse 90 01/21/17 07:38 Resp 20 01/21/17 07:27 BP 161/93 H 01/21/17 07:52 Pulse Ox 95 01/21/17 07:27 Weight - most recent: 77.111 kg I&O - last 24 hours: Intake & Output 01/20/17 01/21/17 01/21/17 22:59 06:59 14:59 Intake Total 700 Output Total 550 900 Balance 150 -900 Lab Results last 24 hrs: Laboratory Results - last 24 hr 01/21/17 Range/Units 05:58 PT 19.4 H (9.5-12.0) sec INR 1.80 H (0.80-1.20) Med Orders - Current: Current Medications Acetaminophen (Tylenol) 650 mg PO Q4H PRN PRN Reason: Pain (Mild 1-3)/fever Last Admin: 01/21/17 02:26 Dose: 650 mg Albuterol (Proventil Neb Soln) 2.5 mg NEB Q4H PRN PRN Reason: Shortness Of Breath/wheezing Last Admin: 01/21/17 02:27 Dose: 2.5 mg Albuterol/Ipratropium (Duoneb 3.0-0.5 Mg/3 Ml) 3 ml NEB QIDRT [facility] Last Admin: 01/21/17 07:37 Dose: 3 ml Aspirin (Halfprin) 81 mg PO DAILY [facility] Last Admin: 01/20/17 09:01 Dose: 81 mg Carvedilol (Coreg) 12.5 mg PO BIDM [facility] Last Admin: 01/21/17 07:52 Dose: 12.5 mg Dextrose (Glutose 15) 15 gm PO ONETIME PRN PRN Reason: Hypoglycemia Dextrose/Water (Dextrose 50% In Water) 50 ml IV ONETIME PRN PRN Reason: Hypoglycemia Docusate Sodium (Colace) 100 mg PO BID PRN PRN Reason: Constipation Furosemide (Lasix) 40 mg PO DAILY [facility] Last Admin: 01/20/17 09:03 Dose: 40 mg Azithromycin 500 mg/ Sodium (Chloride) 250 mls @ 250 mls/hr IV Q24H [facility] Last Admin: 01/20/17 14:34 Dose: 250 mls/hr Ceftriaxone Sodium 1 gm/ (Sodium Chloride) 50 mls @ 100 mls/hr IV Q24H [facility] Last Admin: 01/20/17 16:14 Dose: 100 mls/hr Insulin Aspart (Novolog) 0 unit SUBCUT ASDIRECTED [facility] PRN Reason: Protocol Last Admin: 01/20/17 21:18 Dose: 2 units Lisinopril (Prinivil) 40 mg PO DAILY [facility] Last Admin: 01/20/17 09:04 Dose: 40 mg Magnesium Hydroxide (Milk Of Magnesia) 30 ml PO Q12H PRN PRN Reason: Constipation Alfuzosin 10 Mg ( (Ptom)) 0 mg PO DAILY [facility] Last Admin: 01/20/17 09:00 Dose: 10 mg Omeprazole 20 Mg ( (Ptom)) 0 mg PO DAILY@0730 [facility] Last Admin: 01/21/17 07:51 Dose: 20 mg Ondansetron HCl (Zofran) 4 mg IV Q4H PRN PRN Reason: Nausea/Vomiting Oxycodone HCl (Oxycodone) 5 mg PO Q4H PRN PRN Reason: Pain (moderate 4-6) Polyethylene Glycol (Miralax) 17 gm PO DAILY PRN PRN Reason: Constipation Prednisone (Prednisone) 40 mg PO WITHBREAKFAST [facility] Sodium Chloride (Saline Flush) 10 ml FLUSH ASDIRECTED PRN PRN Reason: Keep Vein Open Warfarin Sodium (Coumadin) 7.5 mg PO ONETIME ONE Stop: 01/21/17 13:01 Discontinued Medications Sodium Chloride (Normal Saline) 1,000 mls @ 999 mls/hr IV ASDIRECTED [facility] Last Admin: 01/19/17 09:25 Dose: 999 mls/hr Sodium Chloride (Normal Saline) 1,000 mls @ 250 mls/hr IV ASDIRECTED [facility] Last Admin: 01/19/17 11:28 Dose: 250 mls/hr Sodium Chloride (Normal Saline) 1,000 mls @ 75 mls/hr IV ASDIRECTED [facility] Last Admin: 01/20/17 05:56 Dose: 75 mls/hr Lidocaine HCl (Xylocaine 2% Jelly) 10 ml MUCMEM ONETIME ONE Stop: 01/19/17 18:05 Last Admin: 01/19/17 18:23 Dose: 10 ml Lidocaine HCl (Xylocaine 2% Jelly) Confirm Administered Dose 10 ml .ROUTE .STK- MED ONE Stop: 01/19/17 18:11 Last Admin: 01/19/17 18:22 Dose: Not Given Warfarin Sodium (Coumadin) 2.5 mg PO ONETIME ONE Stop: 01/19/17 16:01 Last Admin: 01/19/17 17:59 Dose: 2.5 mg Warfarin Sodium (Coumadin) 5 mg PO ONETIME ONE Stop: 01/20/17 14:01 Last Admin: 01/20/17 14:09 Dose: 5 mg - Exam Quality Assessment: No: supplemental oxygen General: alert, cooperative, no acute distress Neck: supple Lungs: Normal respiratory effort, Rales (left lung base), Wheezing (diffuse exp wheezing ) Cardiovascular: Regular Rate, Regular Rhythm, Murmurs Abdomen: soft, no distension Extremities: no edema, no cyanosis Skin: warm, dry Psy/Mental Status: alert, normal affect - Problem List Review Problem List Initiated/Reviewed/Updated: Yes - My Orders Last 24 Hours: My Active Orders 01/21/17 08:57 CULTURE RESPIRATORY + SMEAR [RM] Routine 01/21/17 10:00 predniSONE 40 mg PO WITHBREAKFAST 01/21/17 13:00 Warfarin [Coumadin] 7.5 mg PO ONETIME ONE 01/22/17 05:00 BASIC METABOLIC PANEL,BMP [CHEM] Timed CBC W/O DIFF,HEMOGRAM [HEME] Timed (1) INR,PT,PROTHROMBIN TIME [COAG] Timed - Plan Plan:: ASSESSMENT AND PLAN - RIGHT LUNG PNEUMONIA WITH COPD EXACERBATION - ongoing wheezing and limitation of activity but he is not currently hypoxic. Still confused and still having fevers, not safe for outpatient management at this time. 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 This has not resolved and he is not yet safe for outpatient management. -Treat infection as above Acute urinary retention - probably secondary to acute illness, planning voiding trial in the morning. -Discontinue Aldridge catheter tomorrow morning TYPE 2 DIABETES MELLITUS - sugars well controlled. starting prednisone, may see jump in sugars. -Hold metformin -Moderate dose sliding scale NovoLog -4 times a day glucometers CHRONIC KIDNEY DISEASE STAGE III - renal function has improved with hydration. -Monitor urine output and renal function closely during hospital stay. 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 CT scan of the head did not show any acute changes. CHRONIC ATRIAL FIBRILLATION - rate controlled, on long-term oral anticoagulation with warfarin. INR obtained today is slightly low. -Recheck INR in a.m. -Warfarin 7.5 mg by mouth today MAINTENANCE ISSUES -DVT prophylaxis; warfarin -GI prophylaxis;continue outpatient PPI therapy -Aldridge catheter; placed 01/19 for urinary retention -Nutrition; 2 g sodium consistent carb diet DISPOSITION - anticipate discharge to home with home care after the hospital stay. Smith Ortez MD
[2017-01-21] MEDS: Furosemide 20 MG (PTOM) PO SCH (10:07)
[2017-01-21] MEDS: ALFUZOSIN 10 MG PO SCH (10:07)
[2017-01-21] MEDS: Aspirin 81 MG Tab.EC (PTOM) PO SCH (10:08)
[2017-01-21] MEDS: predniSONE 20 MG Tab PO SCH (10:08)
[2017-01-21] MEDS: LISINOPRIL 10 MG PO SCH (10:09)
--- NOTE | 2017-01-21 10:13 | CR ---
Chest 2V INDICATION: followup after hydration FINDINGS: Comparison 01/19/2017. Sternotomy. 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 Stable cardiomegaly. Pulmo nary vascularity mildly prominent. Advanced degenerative changes left shoulder. Chest otherwise nega tive. No significant change since prior exam.
[2017-01-21] MEDS: Insulin Aspart 100 Units/ML 3 ML Pen SUBCUT SCH ×3 (12:50→22:13)
[2017-01-21] MEDS ORDERED: Warfarin 2.5 MG Tab PO ONE (13:00)
[2017-01-21] MEDS: Azithromycin 500 MG in Sodium Chloride 0.9% 250 ML IV SCH (15:04)
[2017-01-21] MEDS: Carvedilol 12.5 MG Tab PO SCH (16:24)
[2017-01-21] MEDS: cefTRIAXone 1 GM in Sodium Chloride 0.9% 50 ML IV SCH (16:28)
[2017-01-22] MEDS: Albuterol/Ipratropium 3.0-0.5 MG/3 ML Neb Soln NEB SCH ×4 (07:31→21:25)
[2017-01-22] MEDS: OMEPRAZOLE 20 MG PO SCH (08:07)
[2017-01-22] MEDS: predniSONE 20 MG Tab PO SCH (08:08)
[2017-01-22] MEDS: Carvedilol 12.5 MG Tab PO SCH ×2 (08:08→16:48)
[2017-01-22] MEDS: ALFUZOSIN 10 MG PO SCH (08:10)
[2017-01-22] MEDS: Furosemide 40 MG Tab PO SCH (08:11)
[2017-01-22] MEDS: Aspirin 81 MG Tab.EC PO SCH (08:11)
[2017-01-22] MEDS: Lisinopril 20 MG Tab PO SCH (08:12)
[2017-01-22] MEDS ORDERED: Potassium Chloride 20 MEQ Tab.ER PO ONE (09:00)
[2017-01-22] MEDS: Insulin Aspart 100 Units/ML 3 ML Pen SUBCUT SCH ×3 (11:29→21:23)
[2017-01-22] MEDS ORDERED: Warfarin 5 MG Tab PO ONE (13:00)
--- NOTE | 2017-01-22 14:51 | PCM.PN ---
- General Info Date of Service: 01/22/17 Functional Status: Reports: pain controlled, tolerating diet - Review of Systems General: Reports: Weakness. Denies: Fever Pulmonary: Reports: cough, sputum Neurological: Reports: Confusion Systems Review Comment:: No acute events overnight. He remains confused and has worsening of his baseline expressive aphasia. Respiratory status seems to be improving with resolution of his wheezing. He has not been hypoxic. He is weak and does require the assist of 1 to get in and out of bed. He has been coughing up more sputum in the past 12 hours or so. Appetite has been good. Blood sugars have been well-controlled. - Patient Data Vitals - most recent: Last Vital Signs Temp 36.0 C 01/22/17 14:15 Pulse 94 01/22/17 14:38 Resp 18 01/22/17 14:15 BP 146/97 H 01/22/17 14:15 Pulse Ox 95 01/22/17 14:38 Weight - most recent: 77.11 kg I&O - last 24 hours: Intake & Output 01/21/17 01/22/17 01/22/17 22:59 06:59 14:59 Intake Total 360 840 Output Total 800 700 500 Balance -440 -700 340 Lab Results last 24 hrs: Laboratory Results - last 24 hr 01/22/17 01/22/17 01/22/17 Range/Units 04:50 04:50 04:50 WBC 7.0 (4.5-11.0) K/uL RBC 3.27 L (4.30-5.90) M/uL Hgb 10.1 L (12.0-15.0) g/dL Hct 30.9 L (40.0-54.0) % MCV 95 (80-98) fL MCH 31 (27-31) pg MCHC 33 (32-36) % Plt Count 175 (150-400) K/uL PT 23.8 H (9.5-12.0) sec INR 2.19 H (0.80-1.20) Sodium 141 (140-148) mmol/L Potassium 3.5 L (3.6-5.2) mmol/L Chloride 106 (100-108) mmol/L Carbon Dioxide 27 (21-32) mmol/L Anion Gap 11.5 (5.0-14.0) mmol/L BUN 19 H (7-18) mg/dL Creatinine 0.9 (0.8-1.3) mg/dL Est Cr Clr Drug Dosing TNP Estimated GFR (MDRD) > 60 (>60) Glucose 158 H (74-106) mg/dL Calcium 8.3 L (8.5-10.1) mg/dL Javon Results last 24 hrs: Microbiology 01/21/17 13:04 Gram Stain - Final Sputum - Expectorated Respiratory Culture - Preliminary Med Orders - Current: Current Medications Acetaminophen (Tylenol) 650 mg PO Q4H PRN PRN Reason: Pain (Mild 1-3)/fever Last Admin: 01/21/17 02:26 Dose: 650 mg Albuterol (Proventil Neb Soln) 2.5 mg NEB Q4H PRN PRN Reason: Shortness Of Breath/wheezing Last Admin: 01/21/17 02:27 Dose: 2.5 mg Albuterol/Ipratropium (Duoneb 3.0-0.5 Mg/3 Ml) 3 ml NEB QIDRT [facility] Last Admin: 01/22/17 14:38 Dose: 3 ml Aspirin (Halfprin) 81 mg PO DAILY [facility] Last Admin: 01/22/17 08:11 Dose: 81 mg Azithromycin (Zithromax) 500 mg PO Q24H [facility] Carvedilol (Coreg) 12.5 mg PO BIDMEALS [facility] Last Admin: 01/22/17 08:08 Dose: 12.5 mg Cefdinir (Omnicef) 300 mg PO BID [facility] Dextrose (Glutose 15) 15 gm PO ONETIME PRN PRN Reason: Hypoglycemia Dextrose/Water (Dextrose 50% In Water) 50 ml IV ONETIME PRN PRN Reason: Hypoglycemia Docusate Sodium (Colace) 100 mg PO BID PRN PRN Reason: Constipation Furosemide (Lasix) 40 mg PO DAILY [facility] Last Admin: 01/22/17 08:11 Dose: 40 mg Insulin Aspart (Novolog) 0 unit SUBCUT ASDIRECTED [facility] PRN Reason: Protocol Last Admin: 01/22/17 11:29 Dose: 4 units Lisinopril (Prinivil) 40 mg PO DAILY [facility] Last Admin: 01/22/17 08:12 Dose: 40 mg Magnesium Hydroxide (Milk Of Magnesia) 30 ml PO Q12H PRN PRN Reason: Constipation Alfuzosin 10 Mg ( (Ptom)) 0 mg PO DAILY [facility] Last Admin: 01/22/17 08:10 Dose: 10 mg Omeprazole 20 Mg ( (Ptom)) 0 mg PO DAILY@0730 [facility] Last Admin: 01/22/17 08:07 Dose: 20 mg Ondansetron HCl (Zofran) 4 mg IV Q4H PRN PRN Reason: Nausea/Vomiting Oxycodone HCl (Oxycodone) 5 mg PO Q4H PRN PRN Reason: Pain (moderate 4-6) Polyethylene Glycol (Miralax) 17 gm PO DAILY PRN PRN Reason: Constipation Prednisone (Prednisone) 40 mg PO WITHBREAKFAST [facility] Last Admin: 01/22/17 08:08 Dose: 40 mg Sodium Chloride (Saline Flush) 10 ml FLUSH ASDIRECTED PRN PRN Reason: Keep Vein Open Discontinued Medications Aspirin (Halfprin) 81 mg PO DAILY [facility] Last Admin: 01/21/17 10:08 Dose: 81 mg Carvedilol (Coreg) 12.5 mg PO BIDM [facility] Last Admin: 01/21/17 07:52 Dose: 12.5 mg Furosemide (Lasix) 40 mg PO DAILY [facility] Last Admin: 01/21/17 10:07 Dose: 40 mg Sodium Chloride (Normal Saline) 1,000 mls @ 999 mls/hr IV ASDIRECTED [facility] Last Admin: 01/19/17 09:25 Dose: 999 mls/hr Sodium Chloride (Normal Saline) 1,000 mls @ 250 mls/hr IV ASDIRECTED [facility] Last Admin: 01/19/17 11:28 Dose: 250 mls/hr Azithromycin 500 mg/ Sodium (Chloride) 250 mls @ 250 mls/hr IV Q24H [facility] Last Admin: 01/21/17 15:04 Dose: 250 mls/hr Sodium Chloride (Normal Saline) 1,000 mls @ 75 mls/hr IV ASDIRECTED [facility] Last Admin: 01/20/17 05:56 Dose: 75 mls/hr Ceftriaxone Sodium 1 gm/ (Sodium Chloride) 50 mls @ 100 mls/hr IV Q24H [facility] Last Admin: 01/21/17 16:28 Dose: 100 mls/hr Lidocaine HCl (Xylocaine 2% Jelly) 10 ml MUCMEM ONETIME ONE Stop: 01/19/17 18:05 Last Admin: 01/19/17 18:23 Dose: 10 ml Lidocaine HCl (Xylocaine 2% Jelly) Confirm Administered Dose 10 ml .ROUTE .STK- MED ONE Stop: 01/19/17 18:11 Last Admin: 01/19/17 18:22 Dose: Not Given Lisinopril (Prinivil) 40 mg PO DAILY [facility] Last Admin: 01/21/17 10:09 Dose: 40 mg Potassium Chloride (Klor-Con M20) 40 meq PO ONETIME ONE Stop: 01/22/17 09:01 Last Admin: 01/22/17 08:36 Dose: 40 meq Warfarin Sodium (Coumadin) 2.5 mg PO ONETIME ONE Stop: 01/19/17 16:01 Last Admin: 01/19/17 17:59 Dose: 2.5 mg Warfarin Sodium (Coumadin) 5 mg PO ONETIME ONE Stop: 01/20/17 14:01 Last Admin: 01/20/17 14:09 Dose: 5 mg Warfarin Sodium (Coumadin) 7.5 mg PO ONETIME ONE Stop: 01/21/17 13:01 Last Admin: 01/21/17 12:51 Dose: 7.5 mg Warfarin Sodium (Coumadin) 5 mg PO ONETIME ONE Stop: 01/22/17 13:01 Last Admin: 01/22/17 12:26 Dose: 5 mg - Exam Quality Assessment: No: supplemental oxygen General: alert, cooperative, no acute distress Neck: supple Lungs: Normal respiratory effort, Rales (Few left lung base). No: Wheezing Cardiovascular: Regular Rate, Regular Rhythm. No: Murmurs Abdomen: soft, no distension Extremities: no edema, no cyanosis Skin: warm, dry Neurological: other (Expressive aphasia) Psy/Mental Status: alert, normal affect - Problem List Review Problem List Initiated/Reviewed/Updated: Yes - My Orders Last 24 Hours: My Active Orders 01/22/17 08:29 DC Aldridge Catheter [Urinary Catheter Removal] [RC] Per Unit Routine 01/22/17 08:30 PT Evaluation and Treatment [CONS] Routine 01/22/17 09:12 Convert IV to Saline Lock [OM.PC] Routine 01/22/17 15:00 Azithromycin [Zithromax] 500 mg PO Q24H 01/22/17 21:00 Cefdinir [Omnicef] 300 mg PO BID 01/23/17 05:00 HEMOGLOBIN [HEME] Timed INR,PT,PROTHROMBIN TIME [COAG] Timed POTASSIUM,K [CHEM] Timed - Plan Plan:: ASSESSMENT AND PLAN - RIGHT LUNG PNEUMONIA WITH COPD EXACERBATION - wheezing has resolved, not currently hypoxic but is still confused. Gram stain with a few gram-positive cocci and a few gram-negative rods, culture is pending. He is weak and requiring assistance to get into and out of bed. 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 This continues to improve and he looks much better today but is still a ways from baseline and not quite safe for outpatient management today -Treat infection as above Acute urinary retention - probably secondary to acute illness, planning voiding today. -Discontinue Aldridge catheter TYPE 2 DIABETES MELLITUS - sugars well controlled. Sugars still well controlled after starting prednisone other than his bedtime which her last night. -Hold metformin -Moderate dose sliding scale NovoLog -4 times a day glucometers CHRONIC KIDNEY DISEASE STAGE III - renal function has improved with hydration. -Monitor urine output and renal function closely during hospital stay. 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 CT scan of the head did not show any acute changes. CHRONIC ATRIAL FIBRILLATION - rate controlled, on long-term oral anticoagulation with warfarin. INR today is in the therapeutic range -Recheck INR in a.m. -Warfarin 5 mg by mouth today MAINTENANCE ISSUES -DVT prophylaxis; warfarin -GI prophylaxis;continue outpatient PPI therapy -Aldridge catheter; placed 01/19 for urinary retention, will be removed this morning -Nutrition; 2 g sodium consistent carb diet DISPOSITION - anticipate discharge to home with home care after the hospital stay. He should be ready for hospital discharge tomorrow if he is stable overnight. Smith Ortez MD
[2017-01-22] MEDS ORDERED: Azithromycin 250 MG Tab PO SCH (15:00)
[2017-01-22] MEDS: Cefdinir 300 MG Cap PO SCH (21:21)
[2017-01-23 07:07] VITALS: BP 149/95
[2017-01-23] MEDS: OMEPRAZOLE 20 MG PO SCH (07:08)
[2017-01-23] MEDS: Albuterol/Ipratropium 3.0-0.5 MG/3 ML Neb Soln NEB SCH ×2 (07:17→10:51)
[2017-01-23] MEDS: Aspirin 81 MG Tab.EC PO SCH (08:16)
[2017-01-23] MEDS: ALFUZOSIN 10 MG PO SCH (08:16)
[2017-01-23] MEDS: Furosemide 40 MG Tab PO SCH (08:17)
[2017-01-23] MEDS: Cefdinir 300 MG Cap PO SCH (08:18)
[2017-01-23] MEDS: Lisinopril 20 MG Tab PO SCH (08:18)
[2017-01-23] MEDS: predniSONE 20 MG Tab PO SCH (09:00)
[2017-01-23] MEDS: Carvedilol 12.5 MG Tab PO SCH (09:00)
--- NOTE | 2017-01-23 09:42 | PCM.DCSUM1 ---
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 He was admitted for management of presumed pneumonia. - Discharge Data Discharge Date: 01/23/17 Discharge Disposition: Home, [facility] 06 Condition: Good - Discharge Diagnosis/Problem(s) (1) Pneumonia involving right lung SNOMED Code(s): 388083117 ICD Code: J18.9 - PNEUMONIA, UNSPECIFIED ORGANISM Status: Acute Qualifiers: Pneumonia type: due to unspecified organism Lung location: lower lobe of lung Qualified Code(s): J18.1 - Lobar pneumonia, unspecified organism (2) Infectious encephalopathy SNOMED Code(s): 48746287 ICD Code: G93.49 - OTHER ENCEPHALOPATHY; B99.9 - UNSPECIFIED INFECTIOUS DISEASE Status: Acute (3) CVD (cerebrovascular disease) SNOMED Code(s): 60205202 ICD Code: I67.9 - CEREBROVASCULAR DISEASE, UNSPECIFIED Status: Chronic (4) Diabetes mellitus type 2 SNOMED Code(s): 82325915 ICD Code: E11.9 - TYPE 2 DIABETES MELLITUS WITHOUT COMPLICATIONS Status: Chronic - Patient Summary/Data Consults: Consultations 01/22/17 08:30 PT Evaluation and Treatment [CONS] Routine Please Evaluate and Treat. PT Reason for Consult: Strengthening This query below is only for informational purposes and is not editable. Admission Diagnosis/Problem: Bronchitis Hospital Course: Alejandro presented to the emergency room with acute confusion, progressive cough and shortness of breath. Workup in the emergency room was concerning for pneumonia though chest x-ray did not definitively demonstrate an infiltrate. He was started on broad-spectrum antibiotics and admitted to the hospital. Overnight his condition remained relatively stable but did not improve significantly. He had some ongoing wheezing and significant confusion. Clinically he looked a little bit better to know adjustments were made in the treatment plan. On the second day of hospital admission he continued to wheeze so I elected to start steroids at this point. He revealed fairly impressive clinical improvement following steroid initiation. His respiratory status improved and his wheezing resolved. He has not been hypoxic for several days. His mental status seems to be clearing with the addition of the steroids and improvement in his lung function. He had fevers for the first couple of days but has been afebrile for the past 48 hours. His sputum culture is growing a gram-negative tavo with identification pending after more than 48 hours. He is clinically improved with his current antibiotic regimen I think that these should be safe to continue. The plan is for 3 additional days of antibiotic coverage after hospital discharge. He did recommend that he utilize some over- the-counter symptom management type things such as cough suppressant and potentially saline nasal spray. His confusion has improved significantly and he appears to be nearly back to his baseline which unfortunately is a fairly significant expressive aphasia. He'll be discharged home with his . Prescriptions have been sent to the pharmacy of their choice. He will be following up with home care in a couple of days and with his primary care in approximately 2 weeks. Of note his INR the day of discharge is 3.2. I did decrease his warfarin dose down to 2.5 mg daily. He will have an INR checked in 2 days time with home health care. - Patient Instructions Diet: Diabetic Diet Activity: As Tolerated Showering/Bathing: May Shower Notify Provider of: Fever, Increased Pain, Nausea and/or Vomiting Other/Special Instructions: 1. You were in the hospital for management of community acquired pneumonia. Recommend 3 additional days of antibiotic therapy. You should take cefdinir 300 mg twice daily. Your next dose is due tonight. You should also take azithromycin 500 mg once daily. Your next dose is due tomorrow morning. 2. Take warfarin 2.5 mg daily on Saturday and . Home care can check your INR on Saturday and will advise from there. You had 5 mg on Saturday, 7.5 mg on Saturday and 5 mg on Saturday. 3. You should be ready to restart your speech therapy next week. 4. I have placed a new order for home health care. You will receive nursing and physical therapy to help ease your transition home. I would recommend that you have your INR checked on Saturday theJanuary 25. 5. Please seek medical attention if he develops fever greater than 101, have sudden onset of shortness of breath or develop chest pain. - Discharge Plan Prescriptions/Med Rec: Azithromycin 500 mg PO DAILY #3 tablet Cefdinir [IJD: Cefdinir] 300 mg PO BID #7 capsule Home Medications: Home Meds Alfuzosin HCl [Alfuzosin] 10 mg PO DAILY 10/22/14 [History] Aspirin [Adult Low Dose Aspirin EC] 81 mg PO DAILY 10/22/14 [History] Lisinopril 40 mg PO DAILY 10/22/14 [History] Omeprazole [priLOSEC OTC] 20 mg PO DAILY 10/22/14 [History] Simvastatin 20 mg PO DAILY 10/22/14 [History] Warfarin Sodium 2.5 mg PO ASDIRECTED 10/22/14 [History] metFORMIN [Glucophage] 1,000 mg PO BIDM 10/22/14 [History] Carvedilol [Coreg] 12.5 mg PO BIDM #60 tablet 10/25/14 [Rx] Furosemide 40 mg PO DAILY #30 tablet 04/15/16 [Rx] Azithromycin 500 mg PO DAILY #3 tablet 01/23/17 [Rx] Cefdinir [IJD: Cefdinir] 300 mg PO BID #7 capsule 01/23/17 [Rx] Patient Handouts: Community-Acquired Pneumonia, Adult Referrals: Jomar Gonzáles MD [Physician] - (f/u in 2 weeks - f/u hospital stay for pneumonia ) - Discharge Summary/Plan Comment DC Time >30 min.: No (25) - Patient Data Vitals - Most Recent: Last Vital Signs Temp 36.4 C 01/23/17 07:05 Pulse 86 01/23/17 09:00 Resp 16 01/23/17 07:05 BP 149/95 H 01/23/17 09:00 Pulse Ox 94 L 01/23/17 07:05 Weight - Most Recent: 77.11 kg I&O - Last 24 hours: Intake & Output 01/22/17 01/23/17 01/23/17 22:59 06:59 14:59 Intake Total 600 240 Balance 600 240 Lab Results - Last 24 hrs: Laboratory Results - last 24 hr 01/23/17 01/23/17 01/23/17 Range/Units 05:58 05:58 05:58 Hgb 10.2 L (12.0-15.0) g/dL PT 35.5 H (9.5-12.0) sec INR 3.23 H (0.80-1.20) Potassium 3.9 (3.6-5.2) mmol/L OZZY Results - Last 24 hrs: Microbiology 01/21/17 13:04 Gram Stain - Final Sputum - Expectorated Respiratory Culture - Preliminary Med Orders - Current: Current Medications Acetaminophen (Tylenol) 650 mg PO Q4H PRN PRN Reason: Pain (Mild 1-3)/fever Last Admin: 01/21/17 02:26 Dose: 650 mg Albuterol (Proventil Neb Soln) 2.5 mg NEB Q4H PRN PRN Reason: Shortness Of Breath/wheezing Last Admin: 01/21/17 02:27 Dose: 2.5 mg Albuterol/Ipratropium (Duoneb 3.0-0.5 Mg/3 Ml) 3 ml NEB QIDRT [facility] Last Admin: 01/23/17 07:17 Dose: 3 ml Aspirin (Halfprin) 81 mg PO DAILY [facility] Last Admin: 01/23/17 08:16 Dose: 81 mg Azithromycin (Zithromax) 500 mg PO Q24H [facility] Last Admin: 01/22/17 15:36 Dose: 500 mg Carvedilol (Coreg) 12.5 mg PO BIDMEALS [facility] Last Admin: 01/23/17 09:00 Dose: 12.5 mg Cefdinir (Omnicef) 300 mg PO BID [facility] Last Admin: 01/23/17 08:18 Dose: 300 mg Dextrose (Glutose 15) 15 gm PO ONETIME PRN PRN Reason: Hypoglycemia Dextrose/Water (Dextrose 50% In Water) 50 ml IV ONETIME PRN PRN Reason: Hypoglycemia Docusate Sodium (Colace) 100 mg PO BID PRN PRN Reason: Constipation Furosemide (Lasix) 40 mg PO DAILY [facility] Last Admin: 01/23/17 08:17 Dose: 40 mg Insulin Aspart (Novolog) 0 unit SUBCUT ASDIRECTED [facility] PRN Reason: Protocol Last Admin: 01/22/17 21:23 Dose: 4 units Lisinopril (Prinivil) 40 mg PO DAILY [facility] Last Admin: 01/23/17 08:18 Dose: 40 mg Magnesium Hydroxide (Milk Of Magnesia) 30 ml PO Q12H PRN PRN Reason: Constipation Alfuzosin 10 Mg ( (Ptom)) 0 mg PO DAILY [facility] Last Admin: 01/23/17 08:16 Dose: 10 mg Omeprazole 20 Mg ( (Ptom)) 0 mg PO DAILY@0730 [facility] Last Admin: 01/23/17 07:08 Dose: 20 mg Ondansetron HCl (Zofran) 4 mg IV Q4H PRN PRN Reason: Nausea/Vomiting Oxycodone HCl (Oxycodone) 5 mg PO Q4H PRN PRN Reason: Pain (moderate 4-6) Polyethylene Glycol (Miralax) 17 gm PO DAILY PRN PRN Reason: Constipation Prednisone (Prednisone) 40 mg PO WITHBREAKFAST [facility] Last Admin: 01/23/17 09:00 Dose: 40 mg Sodium Chloride (Saline Flush) 10 ml FLUSH ASDIRECTED PRN PRN Reason: Keep Vein Open Discontinued Medications Aspirin (Halfprin) 81 mg PO DAILY [facility] Last Admin: 01/21/17 10:08 Dose: 81 mg Carvedilol (Coreg) 12.5 mg PO BIDM [facility] Last Admin: 01/21/17 07:52 Dose: 12.5 mg Furosemide (Lasix) 40 mg PO DAILY [facility] Last Admin: 01/21/17 10:07 Dose: 40 mg Sodium Chloride (Normal Saline) 1,000 mls @ 999 mls/hr IV ASDIRECTED [facility] Last Admin: 01/19/17 09:25 Dose: 999 mls/hr Sodium Chloride (Normal Saline) 1,000 mls @ 250 mls/hr IV ASDIRECTED [facility] Last Admin: 01/19/17 11:28 Dose: 250 mls/hr Azithromycin 500 mg/ Sodium (Chloride) 250 mls @ 250 mls/hr IV Q24H [facility] Last Admin: 01/21/17 15:04 Dose: 250 mls/hr Sodium Chloride (Normal Saline) 1,000 mls @ 75 mls/hr IV ASDIRECTED [facility] Last Admin: 01/20/17 05:56 Dose: 75 mls/hr Ceftriaxone Sodium 1 gm/ (Sodium Chloride) 50 mls @ 100 mls/hr IV Q24H [facility] Last Admin: 01/21/17 16:28 Dose: 100 mls/hr Lidocaine HCl (Xylocaine 2% Jelly) 10 ml MUCMEM ONETIME ONE Stop: 01/19/17 18:05 Last Admin: 01/19/17 18:23 Dose: 10 ml Lidocaine HCl (Xylocaine 2% Jelly) Confirm Administered Dose 10 ml .ROUTE .STK- MED ONE Stop: 01/19/17 18:11 Last Admin: 01/19/17 18:22 Dose: Not Given Lisinopril (Prinivil) 40 mg PO DAILY [facility] Last Admin: 01/21/17 10:09 Dose: 40 mg Potassium Chloride (Klor-Con M20) 40 meq PO ONETIME ONE Stop: 01/22/17 09:01 Last Admin: 01/22/17 08:36 Dose: 40 meq Warfarin Sodium (Coumadin) 2.5 mg PO ONETIME ONE Stop: 01/19/17 16:01 Last Admin: 01/19/17 17:59 Dose: 2.5 mg Warfarin Sodium (Coumadin) 5 mg PO ONETIME ONE Stop: 01/20/17 14:01 Last Admin: 01/20/17 14:09 Dose: 5 mg Warfarin Sodium (Coumadin) 7.5 mg PO ONETIME ONE Stop: 01/21/17 13:01 Last Admin: 01/21/17 12:51 Dose: 7.5 mg Warfarin Sodium (Coumadin) 5 mg PO ONETIME ONE Stop: 01/22/17 13:01 Last Admin: 01/22/17 12:26 Dose: 5 mg *Q Meaningful Use (DIS) - VTE *Q VTE Criteria *Q: VTE Pharmacological Contraindications *Q: High INR Value - Stroke *Q Stroke Criteria *Q: - AMI *Q AMI Criteria *Q:
== END 2017-01-23 11:45 | disposition home health service (06) | DRG 193 ==
LOC: JP.ED 07:45 → JP.2SS 12:48 → JP.MS 16:55 → UNDODISOB 01-20 11:52 → OBSVTOIN 01-20 12:14
PROVIDERS: ADMIT Hospitalist; ATTEND Internal Medicine
PROC: 0T9B70Z Drainage of Bladder with Drainage Device, Via Natural or Artificial Opening (ICD-10-PCS; principal; 2017-01-19)
DX: J18.1 Lobar pneumonia, unspecified organism (principal); G93.49 Other encephalopathy; I69.959 Hemiplegia and hemiparesis following unspecified cerebrovascular disease affecting unspecified side; J44.1 Chronic obstructive pulmonary disease with (acute) exacerbation; I12.9 Hypertensive chronic kidney disease with stage 1 through stage 4 chronic kidney disease, or unspecified chronic kidney disease; Z79.4 Long term (current) use of insulin; I48.91 Unspecified atrial fibrillation; N18.3 Chronic kidney disease, stage 3 (moderate); I25.10 Atherosclerotic heart disease of native coronary artery without angina pectoris; Z79.01 Long term (current) use of anticoagulants; E11.22 Type 2 diabetes mellitus with diabetic chronic kidney disease; Z79.84 Long term (current) use of oral hypoglycemic drugs; Z87.891 Personal history of nicotine dependence; R33.9 Retention of urine, unspecified; I69.920 Aphasia following unspecified cerebrovascular disease; Z79.82 Long term (current) use of aspirin; H54.7 Unspecified visual loss; Z95.5 Presence of coronary angioplasty implant and graft; Z95.0 Presence of cardiac pacemaker; Z95.1 Presence of aortocoronary bypass graft; Z96.659 Presence of unspecified artificial knee joint; Z91.030 Bee allergy status
CPT/HCPCS: 36415 ×2; 51702; 70450; 71010 ×2; 71020 ×2; 80048; 80053; 81001; 82962 ×2; 83605; 85025 ×2; 85610 ×2; 87040 ×2; 94640 ×3; 96361 ×4; 96365; 96367; 99285 ×2; A9270 ×13; G0378; J0456; J0696; J7040 ×4; J7050 ×2; J7620 ×4; 84132; 85018; 85027; 87070; 87077; 87186; 87205; 96360; 97162-GP

== ENCOUNTER 2017-05-01 17:16 | Emergency (ER) | payer MEDICARE, BC ==
[2017-05-01 17:53] VITALS: BP 126/66
--- NOTE | 2017-05-01 18:18 | EDM.PDOC ---
ED HPI GENERAL MEDICAL PROBLEM - General Chief Complaint: Neurological Problem Stated Complaint: BLOOD SUGAR/DISORIENTED Time Seen by Provider: 05/01/17 17:58 Source of Information: Reports: Patient, Family History Limitations: Reports: No Limitations - History of Present Illness INITIAL COMMENTS - FREE TEXT/NARRATIVE: History of present illness: [79-year-old male was at the dentist today and had a tooth extraction. Afterwards his family noted that he was more confused than usual. He has a history of a CVA and has had some trouble with confusion ever since. They checked his blood sugar was 216 and that is higher than usual and so they were wondering if that could've caused the confusion. At the time that I'm seeing the MBs back to baseline and his family is feeling much better. He has no complaints he has no headache and basically feels fine although he is confused but again his confusion that he is manifesting now is typical for him according to his family. His INR earlier today was 1.8.] Review of systems: As per history of present illness and below otherwise all systems reviewed and negative. Past medical history: As per history of present illness and as reviewed below otherwise noncontributory. Surgical history: As per history of present illness and as reviewed below otherwise noncontributory. Social history: No reported history of drug or alcohol abuse. Family history: As per history of present illness and as reviewed below otherwise noncontributory. Physical exam: HEENT: Atraumatic, normocephalic, pupils reactive, negative for conjunctival pallor or scleral icterus, mucous membranes moist, throat clear, neck supple, nontender, trachea midline. Lungs: Clear to auscultation, breath sounds equal bilaterally, chest nontender. Heart: S1S2, regular, without murmur. He must have intermittent A. fib as his heart rate is regular at this time. Extremities: Atraumatic, negative for cords or calf pain. Neurovascular unremarkable. Neuro: Awake, alert, oriented. Exam nonfocal other than baseline confusion about especially the date. The answer to a lot of my questions is "October ". Family says this is a typical answer for him. Diagnostics: [] Therapeutics: [] Impression: [Confusion now cleared] Plan: [I explained to the family that when he is fragile at baseline as far as his mental status that even any dental procedure could throw him off for a while and I suspect that that's what happened. I have filled to do a head CT and lab work to further investigate this but the family is comfortable at this point taking him home and observing him and bring him back if they notice a change in his baseline and would be happy to see him at that point and investigate this.] Definitive disposition and diagnosis as appropriate pending reevaluation and review of above. - Related Data Allergies Allergy/AdvReac Type Severity Reaction Status Date / Time venom-honey bee Allergy Severe Airway Verified 05/01/17 17:32 [bee venom (honey bee)] Tightness Home Meds: Home Meds Alfuzosin HCl [Alfuzosin] 10 mg PO DAILY 10/22/14 [History] Aspirin [Adult Low Dose Aspirin EC] 81 mg PO DAILY 10/22/14 [History] Omeprazole [priLOSEC OTC] 20 mg PO DAILY 10/22/14 [History] Warfarin Sodium 2.5 mg PO ASDIRECTED 10/22/14 [History] metFORMIN [Glucophage] 1,000 mg PO BIDM 10/22/14 [History] Carvedilol [Coreg] 12.5 mg PO BIDM #60 tablet 10/25/14 [Rx] Furosemide [Lasix] 20 mg PO DAILY 01/24/17 [History] Lisinopril 10 mg PO DAILY 01/24/17 [History] atorvaSTATin [Lipitor] 80 mg PO BEDTIME 01/24/17 [History] Past Medical History HEENT History: Reports: Cataract, Impaired Vision Other HEENT History: retinologist gave "a shot in right eye" Cardiovascular History: Reports: Afib, Bypass, CAD, Heart Failure, High Cholesterol, Hypertension, [place], Pacemaker, SOB on Exertion, Stents Other Cardiovascular History: cabg x3. stent x1 Respiratory History: Reports: Intubation, Previous Other Respiratory History: gets wheezy Genitourinary History: Reports: BPH Musculoskeletal History: Reports: Arthritis Neurological History: Reports: CVA Other Neuro History: May 2016 Endocrine/Metabolic History: Reports: Diabetes, Type II Hematologic History: Reports: Anticoagulation Therapy Oncologic (Cancer) History: Reports: Basal Cell Carcinoma Other Oncologic History: left ear Dermatologic History: Reports: Other (See Below) Other Dermatologic History: skin cancer right ear - Infectious Disease History Infectious Disease History: Reports: Chicken Pox Other Infectious Disease History: unknown - Past Surgical History HEENT Surgical History: Reports: Cataract Surgery Cardiovascular Surgical History: Reports: Coronary Artery Bypass, Coronary Artery Stent, Pacer GI Surgical History: Reports: Hernia Repair/Other Other GI Surgeries/Procedures: x 3 Musculoskeletal Surgical History: Reports: Knee Replacement Other Musculoskeletal Surgeries/Procedures:: knee total. partial knee Dermatological Surgical History: Reports: Skin Biopsy Social & Family History - Family History Cardiac: Reports: [place] Endocrine/Metabolic: Reports: Diabetes, type II - Tobacco Use Smoking Status *Q: Former Smoker Years of Tobacco use: 30 Used Tobacco, but Quit: Yes Month Tobacco Last Used: 30 years ago Second Hand Smoke Exposure: No - Caffeine Use Caffeine Use: Reports: Coffee - Alcohol Use Days Per Week of Alcohol Use: 7 Number of Drinks Per Day: 1 Total Drinks Per Week: 7 - Recreational Drug Use Recreational Drug Use: No Drug Use in Last 12 Months: No ED ROS GENERAL - Review of Systems Review Of Systems: ROS reveals no pertinent complaints other than HPI. - Physical Exam Exam: See Below Course - Vital Signs Last Recorded V/S: Last Vital Signs Temp 37.4 C 05/01/17 17:30 Pulse 92 05/01/17 17:52 Resp 24 H 05/01/17 17:52 BP 126/66 05/01/17 17:52 Pulse Ox 90 L 05/01/17 17:52 Departure - Departure Time of Disposition: 18:17 Disposition: Home, Self-Care 01 Condition: Good Clinical Impression: Confusion - Discharge Information Forms: ED Department Discharge Additional Instructions: It was a pleasure to meet you and your family and we be happy to see you at any time. We wish you the best.
== END 2017-05-01 18:39 | disposition home or self-care (01) ==
LOC: JP.ED 17:16
DX: R41.0 Disorientation, unspecified (principal); I48.91 Unspecified atrial fibrillation; I25.10 Atherosclerotic heart disease of native coronary artery without angina pectoris; I11.0 Hypertensive heart disease with heart failure; I50.9 Heart failure, unspecified; E11.9 Type 2 diabetes mellitus without complications; M19.90 Unspecified osteoarthritis, unspecified site; E78.00 Pure hypercholesterolemia, unspecified; Z95.5 Presence of coronary angioplasty implant and graft; Z98.49 Cataract extraction status, unspecified eye; Z95.1 Presence of aortocoronary bypass graft; Z96.659 Presence of unspecified artificial knee joint; Z79.01 Long term (current) use of anticoagulants; Z87.891 Personal history of nicotine dependence; Z91.030 Bee allergy status; Z79.82 Long term (current) use of aspirin; Z79.899 Other long term (current) drug therapy; Z86.73 Personal history of transient ischemic attack (TIA), and cerebral infarction without residual deficits
CPT/HCPCS: 99283